=== PATIENT | male | born 1975 | race Caucasian/White ===

== ENCOUNTER → 2020-05-01 12:37 | Outpatient (CLI) | payer OTHER, SELFPAY ==
--- NOTE | 2020-05-01 12:39 | DI.RAD.S_ITS ---
PROCEDURE: XR FOOT RT MIN 3V INDICATIONS: right foot pain TECHNIQUE: 3 views of the foot were acquired. COMPARISON: [facility] [place], CR, XR TOE(S) RIGHT, 05/23/2017, 10:19. FINDINGS: Bones: At the area of clinical concern, there is a partially fused os tibial externum seen. No renee fractures or dislocations are seen. No suspicious bony lesions. Incidental note is made of a bipartite medial sesamoid bone. Incidental note is made of an accessory ossicle, an os trigonum. Soft tissues: No tibiotalar joint effusion. Achilles tendon appears normal. IMPRESSION: A partially fused os tibial externum can be seen at the area of clinical concern. Dictated by: Buzz Hernandez M.D. on 05/01/2020 at 11:55 Approved by: Buzz Hernandez M.D. on 05/01/2020 at 11:57
== END ==
PROVIDERS: Referring Provider Physician Assistant; Visit Provider Physician Assistant
DX: M79.671 Pain in right foot (principal)
CPT/HCPCS: 73630

== ENCOUNTER → 2023-04-28 09:14 | Outpatient (CLI) | payer OTHER, SELFPAY ==
[2023-04-28 10:38] LABS: Add Manual Diff / Slide Review NO; Basophils Absolute Auto 100 /uL (0-100); Basophils Percent Auto 1.2 % (0-2); Eosinophils Absolute Auto 100 /uL (0-450); Eosinophils Percent Auto 1.1 % (2-4); Hematocrit 41.8 % (41-53); Hemoglobin 14.7 g/dL (13.5-17.5); Lymphocytes Absolute Auto 1800 /uL (1100-4500); Mean Corpuscular HGB Conc 35.1 % (30-36); Mean Corpuscular Hemoglobin 31.6 PG (26-34); Monocytes Absolute Auto 800 /uL (0-900); Monocytes Percent Auto 12.1 % (3-14); Neutrophils Absolute Auto 3600 /uL (1500-7000); Neutrophils Percent Auto 56.6 % (50-75); Platelet Count 280 X10^3/uL (150-400); Red Blood Cell Count 4.64 X10^6/uL (4.5-5.9); Red Cell Distribution Width 12.5 % (11.6-14.8); White Blood Cell Count 6.3 X10^3/uL (4.5-11.0)
[2023-04-28 10:47] LABS: Hemoglobin A1C% w Est Avg Glu 5.3 % (4.0-6.0)
[2023-04-28 10:58] LABS: Alanine Aminotransferase 39 IU/L (<50); Albumin 4.6 g/dL (3.5-5.0); Albumin Globulin Ratio 1.4 (1.0-2.8); Alkaline Phosphatase 50 U/L (38-126); Aspartate Aminotransferase 35 IU/L (17-59); BUN Creatinine Ratio 17.2 (6-22); Bilirubin Total 0.8 mg/dL (0.2-1.3); Blood Urea Nitrogen 17 mg/dL (9-20); Calcium 9.5 mg/dL (8.4-10.2); Carbon Dioxide 27 mmol/L (22-32); Chloride 99 mmol/L (98-107); Cholesterol 218 mg/dL (140-199); Estimated Glomerular Filt Rate > 60 mL/min (>60); Globulin 3.2 g/dL (1.7-4.1); Glucose 89 mg/dL (70-100); HDL Cholesterol 49 mg/dL (40-60); HEMOLYSIS < 15 (0-50); LDL Cholesterol Calculated 156 mg/dL (<100); Potassium 4.8 mmol/L (3.4-5.1); Sodium 136 mmol/L (137-145); Total Protein 7.8 g/dL (6.3-8.2); Triglycerides 67 mg/dL (35-150)
[2023-04-28 11:04] LABS: Appearance Urine UA CLEAR; Bilirubin Urine UA NEGATIVE (NEGATIVE); Color Urine UA YELLOW; Glucose Urine UA NEGATIVE (Negative); Ketones Urine UA NEGATIVE (NEGATIVE); Leukocyte Esterase Urine UA NEGATIVE (NEGATIVE); Nitrite Urine UA NEGATIVE (Negative); Occult Blood Urine UA NEGATIVE (Negative); Protein Urine UA NEGATIVE (Negative); Urobilinogen Urine UA 0.2 E.U./dL (0.2); pH Urine UA 5.5 (4.5-8.0)
[2023-04-28 11:13] LABS: Bacteria Urine None Seen; Culture Indicated Urine Cult Not Indicated; RBC Urine None Seen (0-5/HPF); Squamous Epithelial Cell Urine None Seen (0-5/HPF); WBC Urine None Seen (0-5/HPF)
[2023-04-28 11:48] LABS: HIV 1 & 2 Ab/Ag 4th Gen Combo NEGATIVE (NEGATIVE); Hep C Virus Ab w/Reflex Quant NEGATIVE s/c (NEGATIVE)
== END ==
PROVIDERS: PCP Family Medicine; Referring Provider Family Medicine; Visit Provider Family Medicine
DX: Z13.1 Encounter for screening for diabetes mellitus (principal); Z11.59 Encounter for screening for other viral diseases; Z13.220 Encounter for screening for lipoid disorders; Z11.4 Encounter for screening for human immunodeficiency virus [HIV]; R10.31 Right lower quadrant pain; N50.811 Right testicular pain
CPT/HCPCS: 36415; 80053; 80061; 81001; 83036; 85025; 86803; 87389

== ENCOUNTER → 2023-05-04 12:53 | Outpatient (CLI) | payer OTHER, SELFPAY ==
--- NOTE | 2023-05-04 12:54 | DI.US.S_ITS ---
PROCEDURE: US SCROTUM INDICATIONS: Rt testicular/inguinal pain TECHNIQUE: Real-time scanning was performed of the scrotum and testicles, with image documentation. Color and pulse Doppler interrogation was performed of both testicles. COMPARISON: None. FINDINGS: Right: Testicle is normal in size at 5.0 x 2.2 x 4.4 cm, and homogenous in echotexture. Epididymis is normal in overall size and morphology. No hydrocele or varicoceles. Overlying scrotal skin is normal in thickness. Left: Testicle is normal in size at 4.6 x 2.3 x 3.4 cm, and homogeneous in echotexture. Epididymis is normal in overall size and morphology. No varicoceles. Small hydrocele. Overlying scrotal skin is normal in thickness. Doppler: Color and pulse Doppler demonstrate normal and symmetric arterial flow in both testicles. No sonographic abnormalities identified in the right inguinal region overlying area of patient's pain. IMPRESSION: Normal sonographic evaluation of the bilateral testicles. No evidence for torsion. No inguinal hernias. Dictated by: Milad Benson M.D. on 05/04/2023 at 16:55 Approved by: Milad Benson M.D. on 05/04/2023 at 16:56
== END ==
PROVIDERS: PCP Family Medicine; Referring Provider Family Medicine; Visit Provider Family Medicine
DX: N50.811 Right testicular pain (principal); R10.31 Right lower quadrant pain
CPT/HCPCS: 76870; 93975